=== PATIENT | female | born 1990 | race Caucasian/White ===

== ENCOUNTER 2019-11-24 13:38 | Emergency (ER) | payer BC, MEDICAID ==
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
== END 2019-11-24 15:52 | disposition home or self-care (01) ==
LOC: JP.ED 13:38
DX: S03.42XA Sprain of jaw, left side, initial encounter (principal); S09.11XA Strain of muscle and tendon of head, initial encounter; Y04.0XXA Assault by unarmed brawl or fight, initial encounter
CPT/HCPCS: 70100; 99283-25